=== PATIENT | female | born 1930 | race Caucasian/White ===

== ENCOUNTER → 2016-06-12 | Outpatient (REF) | payer MEDICARE ==
[~2016-06-12] MED LIST: ACET325T38 PO; ALEN70TA47 PO; AMT10T PO; ASP81CT PO; CHOL500049 PO; CYAN10006 PO; IBUP-793 PO; NITR50CA PO; OMEG1CAP61 PO; OMEP20CA12 PO; PHEN100C4 PO; RANI150T11 PO; SULF-228 PO
== END ==
LOC: LAB 14:24
PROVIDERS: ATTEND Internal Medicine
DX: R30.0 Dysuria (principal); N39.0 Urinary tract infection, site not specified
CPT/HCPCS: 87077; 87088; 87186